=== PATIENT | female | born 1995 | race American Indian/Alaskan Native ===

== ENCOUNTER 2019-08-16 17:03 | Emergency (ER) | payer SELFPAY ==
--- NOTE | 2019-08-16 17:38 | Event Note ---
ED Screening Note Date of service: 08/16/19 Time: 17:36 ED Screening Note: 24 y old female presents with left sided flank and bilateral back pain x 4days denies n/v/d dysuria This initial assessment/diagnostic orders/clinical plan/treatment(s) is/are subject to change based on patients health status, clinical progression and re- assessment by fellow clinical providers in the ED. Further treatment and workup at subsequent clinical providers discretion. Patient/guardian urged not to elope from the ED as their condition may be serious if not clinically assessed and managed. Initial orders include: ua,upt
[2019-08-16 19:07] LABS: Bacteria,Urine 1+ /HPF (Negative); Bilirubin,Urine NEG (Negative); Blood,Urine NEG (Negative); Color,Urine Yellow (Yellow); Protein,Urine <15 mg/dL mg/dL (Negative)
[2019-08-16 19:08] LABS: HCG Qualitative,Urine Negative (Negative)
[2019-08-16] MEDS ORDERED: ONDANSETRON 4 MG/2 ML INJ IV ONE (22:05)
[2019-08-16] MEDS ORDERED: KETOROLAC 30 MG/1 ML INJ IV ONE (22:05)
[2019-08-16] MEDS ORDERED: SODIUM CHLORIDE 0.9% 500 ML 500 ML IV ONE (22:05)
[2019-08-16] MEDS ORDERED: SODIUM CHLORIDE 0.9% 1000 ML 1,000 ML IV ONE (22:05)
[2019-08-16] MEDS ORDERED: ACETAMINOPHEN 325 MG TAB PO ONE (22:05)
--- NOTE | 2019-08-16 22:07 | Emergency Department Report ---
<ZURI WEN - Last Filed: 08/17/19 02:15> ED General Adult HPI - General Chief complaint: Abdominal Pain Stated complaint: LOWER BACK/ABD PAIN Time Seen by Provider: 08/16/19 21:47 - Related Data Previous Rx's Medication Instructions Recorded Last Taken Type Acetaminophen [Non-Aspirin Extra 500 mg PO Q6HR PRN #30 tablet 08/16/19 Unknown Rx Strength] Ibuprofen [Motrin] 400 mg PO Q8H PRN #30 tablet 08/16/19 Unknown Rx Metoclopramide [Reglan] 10 mg PO QID PRN #30 tablet 08/16/19 Unknown Rx DOXYCYCLINE Hyclate [Vibramycin 100 mg PO Q12HR #28 capsule 08/17/19 Unknown Rx CAP] Allergies Allergy/AdvReac Type Severity Reaction Status Date / Time No Known Allergies Allergy Unverified 08/16/19 17:10 ED Past Medical Hx - Medications Home Medications: Home Medications Medication Instructions Recorded Confirmed Last Taken Type Acetaminophen [Non-Aspirin Extra 500 mg PO Q6HR PRN #30 tablet 08/16/19 Unknown Rx Strength] Ibuprofen [Motrin] 400 mg PO Q8H PRN #30 tablet 08/16/19 Unknown Rx Metoclopramide [Reglan] 10 mg PO QID PRN #30 tablet 08/16/19 Unknown Rx DOXYCYCLINE Hyclate [Vibramycin 100 mg PO Q12HR #28 capsule 08/17/19 Unknown Rx CAP] ED Course - Consultations Consultation #1: 08/17/19 01:49 ANTENNA DESIGN ENGINEER paged 08/17/19 02:15 Case, ultrasound report, CT scan and labs discuss with ANTENNA DESIGN ENGINEER Dr. Booth- recommends Rocephin in the ED and sending the patient home with doxycycline 100 mg twice a day 14 days ED Medical Decision Making - Lab Data Result diagrams: 08/16/19 22:31 08/16/19 22:31 ED Disposition Clinical Impression: Pelvic inflammatory disease (PID), Pyelonephritis Disposition: - TO HOME OR SELFCARE Is pt being admited?: No Does the pt Need Aspirin: No Condition: Stable Instructions: Abdominal Pain (ED) Prescriptions: Ibuprofen [Motrin] 400 mg PO Q8H PRN #30 tablet PRN Reason: Pain , Severe (7-10) Acetaminophen [Non-Aspirin Extra Strength] 500 mg PO Q6HR PRN #30 tablet PRN Reason: Pain , Severe (7-10) Metoclopramide [Reglan] 10 mg PO QID PRN #30 tablet PRN Reason: Nausea DOXYCYCLINE Hyclate [Vibramycin CAP] 100 mg PO Q12HR #28 capsule Referrals: [facility] [Provider Group] - 3-5 Days Forms: Work/School Release Form(ED) Time of Disposition: 02:16 <AAMIR MUNSON - Last Filed: 08/19/19 22:36> ED General Adult HPI - General Source: patient, RN notes reviewed Mode of arrival: Ambulatory Limitations: No Limitations - History of Present Illness Initial comments: Primary care ANTENNA DESIGN ENGINEER: [facility] This is a 24-year-old female who is not known to this provider previously. She reports that she has no chronic medical conditions. She presents to the ER with 3 days of bilateral lower quadrant abdominal pain, chills, malaise, fatigue, lightheadedness, weakness. Positive nausea but no vomiting. No dysuria. Abdominal pain is sharp and achy, started and left lower quadrant and moved to the right lower quadrant. She is sexually active with 1 male partner, uses intermittent condom protection There is no complaint of headache, neck pain, chest pain, upper abdominal pain, or sore throat. She reports that she hadn't influenza-like illness 2 weeks ago, but reports that this has resolved, and that she "got better." -: Gradual Location: abdomen Radiation: abdomen Quality: aching Consistency: other Improves with: other Worsens with: other ED Review of Systems ROS: Stated complaint: LOWER BACK/ABD PAIN Other details as noted in HPI Constitutional: chills, fever, malaise, weakness Eyes: denies: eye discharge ENT: denies: congestion Respiratory: denies: wheezing Cardiovascular: denies: palpitations Gastrointestinal: abdominal pain, nausea Genitourinary: denies: dysuria Musculoskeletal: back pain, myalgia Neurological: weakness Hematological/Lymphatic: denies: easy bleeding ED Past Medical Hx - Past Medical History Previous Medical History?: No - Surgical History Past Surgical History?: No - Social History Smoking Status: Current Every Day Smoker Substance Use Type: Alcohol ED Physical Exam - General Limitations: No Limitations General appearance: alert, anxious - Head Head exam: Present: atraumatic, normocephalic - Eye Eye exam: Present: normal appearance, EOMI. Absent: nystagmus - ENT ENT exam: Present: normal exam, mucous membranes dry, normal external ear exam - Neck Neck exam: Present: normal inspection, full ROM. Absent: tenderness, meningismus - Respiratory Respiratory exam: Present: normal lung sounds bilaterally. Absent: respiratory distress - Cardiovascular Cardiovascular Exam: Present: normal rhythm, tachycardia, normal heart sounds. Absent: systolic murmur, diastolic murmur, rubs, gallop - GI/Abdominal GI/Abdominal exam: Present: soft, tenderness, other (his bilateral lower quadrant abdominal pain, with no rebound, guarding or peritoneal signs). Absent: distended, guarding, rebound, rigid, pulsatile mass - External exam: Present: normal external exam. Absent: lesions, lacerations, bleeding Speculum exam: Present: normal speculum exam, other (chaperoned by nurse Alexia Knapp). Absent: erythema, vaginal discharge, foreign body, tissue, laceration Bi-manual exam: Present: cervical motion tendernes, adnexal tenderness - Extremities Exam Extremities exam: Present: normal inspection, full ROM, other (2+ pulses noted in the bilateral upper, lower extremities. There is no long bone tenderness. Musculoskeletal compartments are soft. The pelvis is stable.). Absent: pedal edema, calf tenderness - Back Exam Back exam: Present: normal inspection, full ROM, CVA tenderness (R), CVA tenderness (L). Absent: paraspinal tenderness, vertebral tenderness - Neurological Exam Neurological exam: Present: alert, other (there is no facial droop. The tongue is midline. Extraocular movements are intact bilaterally. Patient speaking in full complete sentences. Shoulder shrug is intact bilaterally. Hearing is grossly intact bilaterally. Visual acuity intact to finger counting and color perception at a close distance. 5/5 strength 4 extremities. Sensation intact to light touch in 4 extremities.). Absent: motor sensory deficit - Psychiatric Psychiatric exam: Present: anxious - Skin Skin exam: Present: warm, dry, intact, normal color. Absent: rash ED Course Vital Signs 08/16/19 08/16/19 08/16/19 21:30 21:32 22:00 Temperature 99.9 F H Pulse Rate 116 H Respiratory 16 Rate Blood Pressure 119/46 119/46 Blood Pressure 103/69 [Left] O2 Sat by Pulse 100 99 99 Oximetry 1108/16/19 08/16/19 22:30 23:00 23:01 Temperature Pulse Rate Respiratory Rate Blood Pressure 117/78 117/78 90/56 Blood Pressure [Left] O2 Sat by Pulse 100 99 Oximetry 08/16/19 08/17/19 08/17/19 23:30 01:01 01:30 Temperature Pulse Rate Respiratory Rate Blood Pressure 104/62 95/66 97/51 Blood Pressure [Left] O2 Sat by Pulse 100 100 100 Oximetry 08/17/19 02:00 Temperature Pulse Rate Respiratory Rate Blood Pressure 97/51 Blood Pressure [Left] O2 Sat by Pulse 100 Oximetry - Reevaluation(s) Reevaluation #1: 08/16/19 23:01 Differential diagnosis, including but not limited to: Urinary tract infection, pyelonephritis, intra-abdominal abscess, colitis, appendicitis, pelvic inflammatory disease Assessment and plan: 24-year-old female with low-grade fever, tachycardia, lower abdominal pain and tenderness, CVA tenderness. Thumb improved after IV fluids, Tylenol, pain medicine and nausea medicine. CT scan abdomen pelvis, pelvic ultrasound, laboratory studies pending. We will reassess after data points have resulted. Reevaluation #2: 08/16/19 23:[address] Ale Wen to follow up on ct a/p and ultrasound if not pathology noted with treat empirically for pelvic inflamamtory disease ED Medical Decision Making - Lab Data Result diagrams: 08/16/19 22:31 08/16/19 22:31 Vital Signs 08/16/19 21:32 Temperature 99.9 F H Pulse Rate 116 H Respiratory 16 Rate Blood Pressure 103/69 [Left] O2 Sat by Pulse 99 Oximetry Lab Results 08/16/19 Range/Units 18:00 Urine Color Yellow (Yellow) Urine Turbidity Clear (Clear) Urine pH 7.0 (5.0-7.0) Ur Specific [place] 1.008 (1.003-1.030) Urine Protein <15 mg/dl (Negative) mg/dL Urine Glucose (UA) Neg (Negative) mg/dL Urine Ketones Neg (Negative) mg/dL Urine Blood Neg (Negative) Urine Nitrite Neg (Negative) Urine Bilirubin Neg (Negative) Urine Urobilinogen 4.0 (<2.0) mg/dL Ur Leukocyte Esterase Sm (Negative) Urine WBC (Auto) 18.0 H (0.0-6.0) /HPF Urine RBC (Auto) 3.0 (0.0-6.0) /HPF U Epithel Cells (Auto) 2.0 (0-13.0) /HPF Urine Bacteria (Auto) 1+ (Negative) /HPF Urine HCG, Qual Negative (Negative) - EKG Data -: EKG Interpreted by Me EKG shows normal: sinus rhythm, axis, intervals, QRS complexes, ST-T waves - Radiology Data Radiology results: report reviewed, image reviewed Critical care attestation.: If time is entered above; I have spent that time in minutes in the direct care of this critically ill patient, excluding procedure time. ED Disposition Is pt being admited?: No Does the pt Need Aspirin: No
[2019-08-16 23:06] LABS: Hematocrit 35.7 % (30.3-42.9); Hemoglobin 12.2 gm/dl (10.1-14.3); Mean Corpuscular HGB Conc 34 % (30-34); Mean Corpuscular Volume 95 fl (79-97); Platelet Count 331 K/mm3 (140-440); Red Blood Count 3.76 M/mm3 (3.65-5.03); Red Cell Distribution Width 12.7 % (13.2-15.2)
[2019-08-16 23:19] LABS: INR 1.73 (0.87-1.13)
[2019-08-16 23:26] LABS: Alanine Aminotransferase 10 units/L (7-56); Albumin 3.5 g/dL (3.9-5); BUN/Creatinine Ratio 12; Blood Urea Nitrogen 7 mg/dL (7-17); Calcium 8.5 mg/dL (8.4-10.2); Hemolysis Index 7
[2019-08-17] MEDS ORDERED: cefTRIAXone/NS 1 GM/50 ML 1 GM/50 ML BAG IV ONE (00:30)
--- NOTE | 2019-08-17 00:55 | Cat Scan Report ---
CT abdomen pelvis w con INDICATION: abd pain flank pain. TECHNIQUE: All CT scans at this location are performed using the following dose modulation technique: Automated exposure control. CONTRAST: Omnipaque 300, 100 cc IV injection. COMPARISON: None available. CT ABDOMEN: Evaluation the parenchymal organs demonstrates thickening/enhancement at the left renal c ollecting system. There is also mild abnormal enhancement at the left kidney and inferiorly just belo w the level the collecting system. Negative for discrete abscess. The remaining parenchymal organs ar e unremarkable. CT PELVIS: Evaluation of the pelvis demonstrate ovarian cysts right greater than left. The largest ri ght-sided cyst measured approximately 3.1 cm. Negative for pelvic mass or localized fluid collection. IMPRESSION: 1. Left-sided pyelonephritis. 2. Bilateral ovarian cysts right greater than left. Signer Name: Favio Neff MD Signed: 08/17/2019 12:50 AM Workstation Name: [id number]
--- NOTE | 2019-08-17 01:34 | Ultrasound Report ---
Pelvic ultrasound performed transabdominally and endovaginally. HISTORY: Pelvic pain.. FINDINGS: Uterus measures 5.8 x 3 x 5.2 cm. The endometrial stripe measures 6 mm. Right ovary measures 2.9 x 2.1 x 2.2 cm and contains a 1.6 cm complex cyst. Left ovary measures 2.9 x 2.1 x 2.2 cm and contains a 1.4 cm complex cyst. What is thought to represent a complex hydrosalpinx is seen on the right. Negative for significant fluid. IMPRESSION: 1. Complex hydrosalpinx right adnexa. 2. Small complex ovarian cysts bilaterally. Signer Name: Favio Neff MD Signed: 08/17/2019 1:29 AM Workstation Name: [id number]
[2019-08-17 01:55] VITALS: BP 97/51
== END 2019-08-17 02:20 | disposition home or self-care (01) ==
LOC: ED 17:03
DX: N73.9 Female pelvic inflammatory disease, unspecified (principal); N12 Tubulo-interstitial nephritis, not specified as acute or chronic; F17.200 Nicotine dependence, unspecified, uncomplicated; Z79.1 Long term (current) use of non-steroidal anti-inflammatories (NSAID); Z79.899 Other long term (current) drug therapy
CPT/HCPCS: 36415; 74177; 76830; 80053; 81001; 81025; 82550; 83735; 85027; 85610; 87076; 87086; 87186; 87210; 93005; 93010; 93975; 96365; 96375; 99285; J0696; J1885; J2405; J7030; J7040; Q9967

== ENCOUNTER 2020-01-03 08:46 | Outpatient (CLI) | payer MEDICAID ==
--- NOTE | 2020-01-03 10:26 | Ultrasound Report ---
FIRSTTRIMESTER OBSTETRIC ULTRASOUND HISTORY: IUP COMPARISON: None. TECHNIQUE: Routine transabdominal OB ultrasound performed. FINDINGS: Uterus: Mildly enlarged measuring 9.6 x 8.0 x 8.4 cm. Gestational Sac: Well-defined oval shape and intrauterine in location. Fetus/Embryo: [place]-rump length of 3.7 cm, corresponding to an estimated gestational age of 10 weeks 4 days. Embryonic/ anatomy is too small for evaluation. Embryonic/ cardiac activity: 150bpm Placenta: Too small for evaluation. Amniotic fluid volume: Subjectively appropriate for gestational age. Ovaries: Not visualized. Additional findings: None. IMPRESSION: 1. Single living intrauterine at 10 weeks 4 days based on crown-rump length measurement. 2. EDC based on current measurements is 07/27/2020 and EDC based on LMP is 07/28/2020. Signer Name: Benito Ritchie MD Signed: 01/03/2020 10:22 AM Workstation Name: [id number]
== END 2020-01-03 08:47 | disposition home or self-care (01) ==
LOC: US 08:46
PROVIDERS: ATTEND Obstetrics & Gynecology
DX: Z34.91 Encounter for supervision of normal pregnancy, unspecified, first trimester (principal); Z3A.10 10 weeks gestation of pregnancy
CPT/HCPCS: 76801

== ENCOUNTER 2020-07-16 14:33 | Outpatient (CLI) | payer MEDICAID ==
[2020-07-16] MEDS ORDERED: LIDOCAINE (2%) 20 MG/1 ML VIAL 20 ML MDV INFILTRATI ONE (16:46)
[2020-07-16] MEDS ORDERED: METHYLERGONOVINE MALEATE 0.2 MG/ML VIAL IM PRN (16:46)
[2020-07-16] MEDS ORDERED: miSOPROStol 200 MCG TAB PR PRN (16:46)
[2020-07-16] MEDS ORDERED: TERBUTALINE 1 MG/1 ML INJ SUB-Q PRN (16:46)
[2020-07-16] MEDS ORDERED: fentaNYL 100 MCG/2 ML INJ IV PRN (16:46)
[2020-07-16] MEDS ORDERED: MINERAL OIL 30 ML ORAL LIQD PO PRN (16:46)
[2020-07-16] MEDS ORDERED: NALOXONE 0.4 MG/1 ML INJ IV PRN (16:46)
[2020-07-16] MEDS ORDERED: ACETAMINOPHEN 325 MG TAB PO PRN (16:46)
[2020-07-16] MEDS ORDERED: ONDANSETRON 4 MG/2 ML INJ IV PRN (16:46)
[2020-07-16] MEDS ORDERED: ePHEDrine SULFATE 50 MG/1 ML INJ IV PRN (16:46)
[2020-07-16] MEDS ORDERED: LACTATED RINGERS 1,000 ML IV SCH (17:00)
[2020-07-16] MEDS ORDERED: OXYTOCIN DRIP 30 UNITS/500 ML BAG IV SCH ×2 (17:00)
--- NOTE | 2020-07-16 17:22 | History and Physical Report ---
History of Present Illness Date of examination: 07/16/20 Chief complaint: contractions History of present illness: Pt is a 25 year old at 38 wks who presents with contractions. She was 5 cm in the office this morning with some blood show after having her membranes swept. She denies leakage of fluid. Her course has been uncomplicated. She is GBS negative. Past History Past Medical History: no pertinent history - Obstetrical History Expected Date of Delivery: 07/28/20 Actual Gestation: 38 Week(s) 2 Day(s) : 2 Para: 1 Hx # Term Pregnancies: 1 Number of Pregnancies: 0 Spontaneous Abortions: 0 Induced : 0 Number of Living Children: 1 Medications and Allergies Allergies Allergy/AdvReac Type Severity Reaction Status Date / Time No Known Allergies Allergy Verified 07/16/20 16:40 Home Medications Medication Instructions Recorded Confirmed Last Taken Type Acetaminophen [Non-Aspirin Extra 500 mg PO Q6HR PRN #30 tablet 08/16/19 07/16/20 Unknown Rx Strength] Ibuprofen [Motrin] 400 mg PO Q8H PRN #30 tablet 08/16/19 07/16/20 Unknown Rx Metoclopramide [Reglan] 10 mg PO QID PRN #30 tablet 08/16/19 07/16/20 Unknown Rx DOXYCYCLINE Hyclate [Vibramycin 100 mg PO Q12HR #28 capsule 08/17/19 07/16/20 Unknown Rx CAP] Active Meds: Active Medications Acetaminophen (Tylenol) 650 mg PO Q4H PRN PRN Reason: Pain, Mild (1-3) Ephedrine Sulfate (Ephedrine Sulfate) 10 mg IV Q2M PRN PRN Reason: Hypotension Fentanyl (Sublimaze) 100 mcg IV Q2H PRN PRN Reason: Pain,Severe (7-10) LABOR PAIN Oxytocin/Sodium Chloride (Pitocin/Ns 30 Unit/500ml) 30 units in 500 mls @ 2 mls/hr IV TITR JANETT; Protocol Lactated Ringer's (Lactated Ringers) 1,000 mls @ 125 mls/hr IV DIRECT JANETT Oxytocin/Sodium Chloride (Pitocin/Ns 30 Unit/500ml) 30 units in 500 mls @ 40 mls/hr IV TITR JANETT; Protocol Methylergonovine Maleate (Methergine) 0.2 mg IM ONCE PRN PRN Reason: Uterine Bleeding Mineral Oil (Mineral Oil) 30 ml PO QHS PRN PRN Reason: Constipation Misoprostol (Cytotec) 800 mcg CO ONCE PRN PRN Reason: Uterine Bleeding Naloxone HCl (Naloxone) 0.1 mg IV Q2MIN PRN PRN Reason: Res Rate </= 8 or 02 SAT < 92% Ondansetron HCl (Zofran) 4 mg IV Q8H PRN PRN Reason: Nausea And Vomiting Terbutaline Sulfate (Brethine) 0.25 mg SUB-Q ONCE PRN PRN Reason: Hyperstimulation/Hypertonicity Review of Systems All systems: negative - Vital Signs Vital signs: Vital Signs Temp 98.0 F 07/16/20 16:15 Temp Pulse Resp BP Pulse Ox 98.0 F 07/16/20 16:15 - Physical Exam Abdomen: Positive: soft (gravid ) Uterus: Positive: enlarged (gravid ) Extremities: Positive: normal - Obstetrical FHR: auscultation normal Cervical Dilatation: 5 Cervical Effacement Percentage: 50 station: -2 Uterine Contraction Pattern: Irregular Uterine Tone Measurement Phase: Resting Uterine Contraction Intensity: Mild Results All other labs normal. Assessment and Plan A: IUP at 38w2d Active Labor GBS Negative P: Admit to labor and delivery Routine admission orders
--- NOTE | 2020-07-16 17:23 | Event Note ---
Date: 07/16/20 Pt is in no distress and has had no cervical private branch exchange installer two hours of observation, nor change from her exam in office this morning (greater than 6 hours ago). Pt will be discharged home with labor precautions. She has a follow up appt scheduled.
--- NOTE | 2020-07-16 17:25 | Short Stay Summary ---
Short Stay Documentation Date of service: 07/16/20 - History H&P: dictated - Allergies and Medications Current Medications: Allergies No Known Allergies Allergy (Verified 07/16/20 16:40) Home Medications Medication Instructions Recorded Confirmed Last Taken Type Acetaminophen [Non-Aspirin Extra 500 mg PO Q6HR PRN #30 tablet 08/16/19 07/16/20 Unknown Rx Strength] Ibuprofen [Motrin] 400 mg PO Q8H PRN #30 tablet 08/16/19 07/16/20 Unknown Rx Metoclopramide [Reglan] 10 mg PO QID PRN #30 tablet 08/16/19 07/16/20 Unknown Rx DOXYCYCLINE Hyclate [Vibramycin 100 mg PO Q12HR #28 capsule 08/17/19 07/16/20 Unknown Rx CAP] Active Medications Acetaminophen (Tylenol) 650 mg PO Q4H PRN PRN Reason: Pain, Mild (1-3) Ephedrine Sulfate (Ephedrine Sulfate) 10 mg IV Q2M PRN PRN Reason: Hypotension Fentanyl (Sublimaze) 100 mcg IV Q2H PRN PRN Reason: Pain,Severe (7-10) LABOR PAIN Oxytocin/Sodium Chloride (Pitocin/Ns 30 Unit/500ml) 30 units in 500 mls @ 2 mls/hr IV TITR JANETT; Protocol Lactated Ringer's (Lactated Ringers) 1,000 mls @ 125 mls/hr IV DIRECT JANETT Oxytocin/Sodium Chloride (Pitocin/Ns 30 Unit/500ml) 30 units in 500 mls @ 40 mls/hr IV TITR JANETT; Protocol Methylergonovine Maleate (Methergine) 0.2 mg IM ONCE PRN PRN Reason: Uterine Bleeding Mineral Oil (Mineral Oil) 30 ml PO QHS PRN PRN Reason: Constipation Misoprostol (Cytotec) 800 mcg NV ONCE PRN PRN Reason: Uterine Bleeding Naloxone HCl (Naloxone) 0.1 mg IV Q2MIN PRN PRN Reason: Res Rate </= 8 or 02 SAT < 92% Ondansetron HCl (Zofran) 4 mg IV Q8H PRN PRN Reason: Nausea And Vomiting Terbutaline Sulfate (Brethine) 0.25 mg SUB-Q ONCE PRN PRN Reason: Hyperstimulation/Hypertonicity - Hospital course Hospital course: This patient was admitted due to contractions and bloody show at 38 weeks. However, over greater than 6 hours the patient has made no cervical change. She has a category 1 tracing. She will be discharged home with labor precautions. She has a follow-up appointment scheduled. - Disposition Condition at discharge: Stable Disposition: DC-01 TO HOME OR SELFCARE - Discharge Diagnoses (1) Irregular contractions Status: Acute (2) Status: Acute Qualifiers: Weeks of gestation: 38 weeks Qualified Code(s): Z3A.38 - 38 weeks gestation of Short Stay Discharge Plan Activity: no restrictions Weight Bearing Status: Full Weight Bearing Diet: regular Follow up with: BENNY ADAM CNM [Advanced Practice Nurse] - 7 Days
== END 2020-07-16 17:36 | disposition home or self-care (01) ==
LOC: TRG 14:33 → APU 14:37 → LD 16:45 → TRG 17:36
PROVIDERS: ATTEND Obstetrics & Gynecology
DX: O47.1 False labor at or after 37 completed weeks of gestation (principal); Z3A.38 38 weeks gestation of pregnancy
CPT/HCPCS: 59025

== ENCOUNTER 2020-07-18 21:32 | Inpatient (IN) | payer MEDICAID ==
[2020-07-18] MEDS ORDERED: LACTATED RINGERS 1,000 ML ONE (22:46)
[2020-07-18] MEDS ORDERED: NALOXONE 0.4 MG/1 ML INJ IV PRN (23:09)
[2020-07-18] MEDS ORDERED: ONDANSETRON 4 MG/2 ML INJ IV PRN (23:09)
[2020-07-18] MEDS ORDERED: BUTORPHANOL 2 MG/1 ML INJ IV PRN ×2 (23:09)
[2020-07-18] MEDS ORDERED: ePHEDrine SULFATE 50 MG/1 ML INJ IV PRN (23:09)
[2020-07-18] MEDS ORDERED: MINERAL OIL 30 ML ORAL LIQD PO PRN (23:09)
[2020-07-18] MEDS ORDERED: LIDOCAINE (2%) 20 MG/1 ML VIAL 20 ML MDV INFILTRATI ONE (23:09)
[2020-07-18] MEDS ORDERED: PROMETHAZINE 25 MG TAB PO PRN (23:09)
[2020-07-18] MEDS ORDERED: TERBUTALINE 1 MG/1 ML INJ SUB-Q PRN (23:09)
[2020-07-18] MEDS ORDERED: fentaNYL 100 MCG/2 ML INJ IV PRN (23:09)
[2020-07-18 23:20] LABS: Hematocrit 33.4 % (30.3-42.9); Hemoglobin 11.6 gm/dl (10.1-14.3); Mean Corpuscular HGB Conc 35 % (30-34); Mean Corpuscular Volume 95 fl (79-97); Platelet Count 175 K/mm3 (140-440); Red Blood Count 3.53 M/mm3 (3.65-5.03); Red Cell Distribution Width 12.9 % (13.2-15.2)
[2020-07-18] MEDS ORDERED: OXYTOCIN DRIP 30 UNITS/500 ML BAG IV SCH ×2 (23:45)
[2020-07-18] MEDS ORDERED: LACTATED RINGERS 1,000 ML IV SCH (23:45)
[2020-07-19] MEDS ORDERED: NALOXONE 2 MG/2 ML INJ IV PRN (00:26)
[2020-07-19] MEDS ORDERED: ePHEDrine SULFATE 50 MG/1 ML INJ IV PRN (00:26)
--- NOTE | 2020-07-19 00:27 | Anesthesia Consultation ---
Anesthesia Consult and Med Hx Date of service: 07/19/20 - Airway Anesthetic Teeth Evaluation: Good ROM Head & Neck: Adequate Mental/Hyoid Distance: Adequate Mallampati Class: Class II Intubation Access Assessment: Probably Good - Pulmonary Exam CTA: Yes - Cardiac Exam Cardiac Exam: RRR - Pre-Operative Health Status ASA Pre-Surgery Classification: ASA2 Proposed Anesthetic Plan: Epidural - Pulmonary Hx Asthma: No - Cardiovascular System Hx Hypertension: No - Central Nervous System Hx Seizures: No Hx Psychiatric Problems: No - Endocrine Hx Renal Disease: No Hx Hypothyroidism: No Hx Hyperthyroidism: No - Hematic Hx Anemia: Yes Hx Sickle Cell Disease: No - Other Systems Hx Alcohol Use: No
--- NOTE | 2020-07-19 00:28 | Progress Note ---
Labor Epidural - Labor Epidural Start Time: 00:15 Stop Time: 00:28 Performed by:: ROHITH VALLADARES Procedure: Patient is requesting epidural for labor pain. H&P, and labs reviewed. Procedure explained, questions answered, consent obtained. Patient in sitting position with blood pressure cuff and pulse ox on and working. Timeout performed immediately before start of procedure. Sterile betadine prep/drape. 3 mL 1% lidocaine skin wheal at L[3]-L[4]. 18-gauge Touhy epidural needle advanced to [id number] with saline at 5 cm. Epidural dexmedetomidine [30] mcg administered. Epidural catheter advanced to 10 cm, negative aspiration for blood and csf, negative test dose 3 ml 1.5% lidocaine with epinephrine. Sterile steri-strips and tegaderm applied, followed by tape reinforcement. Patient tolerated procedure well. Korin SRNA
--- NOTE | 2020-07-19 00:46 | History and Physical Report ---
History of Present Illness Date of examination: 07/19/20 Date of admission: 07/18/20 21:34 Chief complaint: Pt presented to triage after SROM at 2030, clear fluid and mild contractions History of present illness: 25 y/o presents in active labor with SROM and mild contractions. Pt reports positive movement, denies vaginal bleeding. VE in triage /-2, rupture confirmed, clear fluid. A+, GBS negative. PMHx unremarkable. Pt has received care with [facility]. Past History Past Medical History: GERD Past Surgical History: no surgical history Family/Genetic History: none Social history: no significant social history - Obstetrical History Expected Date of Delivery: 07/28/20 Actual Gestation: 38 Week(s) 5 Day(s) : 2 Para: 1 Hx # Term Pregnancies: 1 Number of Pregnancies: 0 Spontaneous Abortions: 0 Induced : 0 Number of Living Children: 1 Medications and Allergies Allergies Allergy/AdvReac Type Severity Reaction Status Date / Time No Known Allergies Allergy Verified 07/16/20 16:40 Home Medications Medication Instructions Recorded Confirmed Last Taken Type No Known Home Medications [No 07/18/20 07/18/20 Unknown History Reported Home Medications] Active Meds: Active Medications Butorphanol Tartrate (Stadol) 1 mg IV Q2H PRN PRN Reason: Pain, Moderate(4-6) LABOR PAIN Butorphanol Tartrate (Stadol) 2 mg IV Q2H PRN PRN Reason: Pain , Severe (7-10) Ephedrine Sulfate (Ephedrine Sulfate) 10 mg IV Q2M PRN PRN Reason: Hypotension Fentanyl (Sublimaze) 100 mcg IV Q2H PRN PRN Reason: Pain,Severe (7-10) LABOR PAIN Oxytocin/Sodium Chloride (Pitocin/Ns 30 Unit/500ml) 30 units in 500 mls @ 2 mls/hr IV TITR JANETT; Protocol Lactated Ringer's (Lactated Ringers) 1,000 mls @ 125 mls/hr IV DIRECT JANETT Last Admin: 07/18/20 23:00 Dose: 125 mls/hr Documented by: Oxytocin/Sodium Chloride (Pitocin/Ns 30 Unit/500ml) 30 units in 500 mls @ 40 mls/hr IV TITR JANETT; Protocol Stop: 07/19/20 12:14 Fentanyl/Bupivacaine/Sodium Chlor (Fentanyl-Bupiv 2 Mcg/Ml-0.125%) 200 mcg in 100 mls @ 12 mls/hr EPIDURAL TITR JANETT; Protocol Mineral Oil (Mineral Oil) 30 ml PO QHS PRN PRN Reason: Constipation Naloxone HCl (Naloxone) 0.2 mg IV Q5M PRN PRN Reason: Respiratory sedation Ondansetron HCl (Zofran) 4 mg IV Q8H PRN PRN Reason: Nausea And Vomiting Promethazine HCl (Phenergan) 25 mg PO Q6H PRN PRN Reason: Nausea And Vomiting Terbutaline Sulfate (Brethine) 0.25 mg SUB-Q ONCE PRN PRN Reason: Hyperstimulation/Hypertonicity Review of Systems All systems: negative Genitourinary: leakage of fluid, contractions, no vaginal bleeding, no genital sores - Vital Signs Vital signs: Vital Signs Temp Pulse Resp BP Pulse Ox 99.2 F 98 H 18 107/73 99 07/18/20 22:19 07/18/20 22:19 07/18/20 22:19 07/18/20 22:19 07/18/20 22:19 Temp Pulse Resp BP Pulse Ox 99.2 F 76 18 99/60 99 07/18/20 22:19 07/19/20 00:40 07/18/20 22:19 07/19/20 00:40 07/19/20 00:36 - Physical Exam Lungs: Positive: Normal air movement Abdomen: Positive: soft. Negative: distention Uterus: Positive: enlarged - Obstetrical FHR: category 1 FHR comments: Baseline FHR 125 Uterine Contraction Monitor Mode: External Cervical Dilatation: 6 (per transitional living specialist) Cervical Effacement Percentage: 80 station: -2 Uterine Contraction Frequency (min): 3 Uterine Contraction Duration: 45 Uterine Contraction Pattern: Irregular Results Result Diagrams: 07/18/20 22:50 Abnormal lab results 07/18/20 Range/Units 22:50 RBC 3.53 L (3.65-5.03) M/mm3 MCH 33 H (28-32) pg MCHC 35 H (30-34) % RDW 12.9 L (13.2-15.2) % All other labs normal. Assessment and Plan A: at 38w5d in active labor SROM at 2030, clear fluid. Ruptured x4h GBS- Afebrile, normotensive P: Admit to L&D Epidural as patient desires Pitocin augmentation 2x2 once epidural placed Anticipate
[2020-07-19] MEDS ORDERED: fentaNYL-BUPIV 2 MCG/ML-0.125% 200 MCG/100 ML BAG EPIDURAL SCH (01:00)
[2020-07-19] MEDS ORDERED: FAMOTIDINE 20 MG/2 ML INJ IV ONE ×2 (03:35→03:55)
--- NOTE | 2020-07-19 03:56 | Procedure Note ---
OB Delivery Note - Delivery Date of Delivery: 07/19/20 Surgeon: BENNY ADAM ([facility]) Estimated blood loss: 300cc - Vaginal Delivery presentation: compound (left hand) Delivery position: OA Intrapartum events: PROM->1hr before delivery, mult.variable deceleratio, other(please specify) (uterine prolapse to 1 fingerbreadth outside of perineum ) Delivery induction: none Delivery augmentation: pitocin Delivery monitor: external FHT, external uterine Route of delivery: Delivery placenta: spontaneous, adherent Delivery cord: 3 umbilical vessels Episiotomy: none Delivery laceration: none Anesthesia: epidural Delivery comments: of viable female over intact perineum at 0329. Variable decelerations in FHR x10 min before delivery. Head delivered OA, restituted ROT. Compound hand noted. Body followed spontaneously. placed on maternal abdomen, vigorous w/ apgars 8/9. Dried and bulb suction performed. Pitocin infusion started. Placenta delivered grossly intact w/ 3vc at 0334. Patient experienced significant coughing related to nausea and acid reflux, causing uterine prolapse managed with bimanual pressure; pepcid and zofran IV given to manage coughing. Fundus firm and midline despite prolapse. EBL 300mL, intact perineum. Infant 5lb 13oz, 19.5". Will continue to monitor prolapse/ - Infant A at 1 minute: 8 at 5 minutes: 9 Gender: Female
[2020-07-19] MEDS ORDERED: LANOLIN/ZINC/DIMETHICONE (LANSINOH) 7 GM TP PRN (04:00)
[2020-07-19] MEDS ORDERED: PROMETHAZINE 25 MG RECT SUPP PR PRN (04:00)
[2020-07-19] MEDS ORDERED: ONDANSETRON 4 MG/2 ML INJ IV PRN (04:00)
[2020-07-19] MEDS ORDERED: WITCH HAZEL/ GLYCERIN PAD TP PRN (04:00)
[2020-07-19] MEDS ORDERED: PROMETHAZINE 25 MG TAB PO PRN (04:00)
[2020-07-19] MEDS ORDERED: MAGNESIUM HYDROXIDE (MOM) ORAL LIQD UDC PO PRN (04:00)
[2020-07-19] MEDS ORDERED: diphenhydrAMINE 25 MG CAP PO PRN (04:00)
[2020-07-19] MEDS: IBUPROFEN 600 MG TAB PO SCH ×2 (11:41→19:42)
[2020-07-19 18:40] LABS: Hematocrit 29.6 % (30.3-42.9)
[2020-07-20] MEDS: IBUPROFEN 600 MG TAB PO SCH ×2 (02:41→12:35)
--- NOTE | 2020-07-20 12:27 | Progress Note ---
Assessment and Plan PPD 1 s/p . Doing well. Plan for discharge on today. Subjective - Subjective Date of service: 07/20/20 Principal diagnosis: Spontaneous vaginal delivery Patient reports: appetite normal, voiding normally, ambulating normally : doing well Objective - Vital Signs Latest vital signs: Vital Signs Temp Pulse Resp BP BP Pulse Ox 07/20/20 08:45 97.4 F L 73 20 101/59 07/20/20 00:41 98.1 F 65 20 94/57 98 07/19/20 16:15 97.9 F 80 20 112/70 07/19/20 14:11 98 F 75 18 99/55 Intake and Output 07/19/20 07/20/20 07/20/20 22:59 06:59 14:59 Intake Total 440 480 Output Total 1300 Balance -860 480 Intake: Oral 440 480 Output: Urine 1300 Void 1300 Other: Total, Intake Amount 120 120 Total, Output Amount 400 # Voids Void 1 - Exam Breasts: Present: deferred Cardiovascular: Present: Regular rate, Normal S1, Normal S2 Lungs: Present: Clear to auscultation, Normal air movement Abdomen: Present: normal appearance, soft, normal bowel sounds Uterus: Present: normal, firm Extremities: Present: normal - Labs Labs: Abnormal lab results 07/19/20 Range/Units 18:26 Hgb 10.0 L (10.1-14.3) gm/dl Hct 29.6 L (30.3-42.9) %
--- NOTE | 2020-07-20 12:29 | Discharge Summary ---
Providers - Providers Date of Admission: 07/18/20 21:34 Date of discharge: 07/20/20 Attending physician: NICHOLAS CARTER 07/19/20 04:01 Consult to Primary Teaching Assistant [CONS] Routine Reason For Exam: assistance with , SNS Primary care physician: NICHOLAS CARTER Hospitalization Reason for admission: active labor Delivery: Laceration: 1st degree Discharge diagnosis: IUP at term delivered [place] baby: female Hospital course: unremarkable Condition at discharge: Good Disposition: DC-01 TO HOME OR SELFCARE Plan - Provider Discharge Summary Activity: routine, no sex for 6 weeks, no heavy lifting 4 weeks, no strenuous exercise Diet: routine Instructions: routine Additional instructions: [] Smoking cessation referral if applicable(refer to patient education folder for contact #) [] Refer to [facility]'s [facility] Booklet Call your doctor immediately for: * Fever > 100.5 * Heavy vaginal bleeding ( >1 pad per hour) * Severe persistent headache * Shortness of breath * Reddened, hot, painful area to leg or breast * Drainage or odor from incision. * Keep incision clean and dry at all times and follow doctor's instructions regarding bathing/showering - Follow up plan Follow up: NICHOLAS CARTER MD [Primary Care Provider] - 6 Weeks
[2020-07-20 13:13] VITALS: BP 101/68
== END 2020-07-20 15:05 | disposition home or self-care (01) | DRG 775 ==
LOC: TRG 21:32 → LD 21:34 → OB 07-19 05:35
PROVIDERS: ADMIT Obstetrics & Gynecology; ATTEND Obstetrics & Gynecology
PROC: 10E0XZZ Delivery of Products of Conception, External Approach (ICD-10-PCS; principal; 2020-07-19)
PROC: 3E0R3BZ Introduction of Anesthetic Agent into Spinal Canal, Percutaneous Approach (ICD-10-PCS; 2020-07-19)
PROC: 00HU33Z Insertion of Infusion Device into Spinal Canal, Percutaneous Approach (ICD-10-PCS; 2020-07-19)
DX: O76 Abnormality in fetal heart rate and rhythm complicating labor and delivery (principal); Z37.0 Single live birth; Z3A.38 38 weeks gestation of pregnancy; Z20.828 Contact with and (suspected) exposure to other viral communicable diseases; K21.9 Gastro-esophageal reflux disease without esophagitis; O42.90 Premature rupture of membranes, unspecified as to length of time between rupture and onset of labor, unspecified weeks of gestation; O99.62 Diseases of the digestive system complicating childbirth; O34.523 Maternal care for prolapse of gravid uterus, third trimester
CPT/HCPCS: 36415; 59025; 85014; 85018; 85027; 86592; 86850; 86900; 86901; G0378; J2405; J2590; J7120; U0003

== ENCOUNTER 2021-07-08 13:44 | Inpatient (IN) | payer MEDICAID ==
[2021-07-08] MEDS ORDERED: ePHEDrine SULFATE 50 MG/1 ML INJ IV PRN ×2 (15:00→15:40)
[2021-07-08] MEDS ORDERED: fentaNYL 100 MCG/2 ML INJ IV PRN (15:00)
[2021-07-08] MEDS ORDERED: BUTORPHANOL 2 MG/1 ML INJ IV PRN (15:00)
[2021-07-08] MEDS ORDERED: OXYTOCIN 10 UNIT/1 ML INJ IM PRN (15:00)
[2021-07-08] MEDS ORDERED: OXYTOCIN DRIP 30 UNITS/500 ML BAG IV SCH (15:00)
[2021-07-08] MEDS: LACTATED RINGERS 1,000 ML IV SCH ×2 (15:00→16:03)
[2021-07-08] MEDS ORDERED: MINERAL OIL 30 ML ORAL LIQD PO PRN (15:00)
[2021-07-08] MEDS ORDERED: miSOPROStol 200 MCG TAB PR PRN (15:00)
[2021-07-08] MEDS ORDERED: ACETAMINOPHEN 325 MG TAB PO PRN (15:00)
[2021-07-08] MEDS ORDERED: NalbUPHINE 10 MG/1 ML INJ IV PRN ×2 (15:00→15:40)
[2021-07-08] MEDS ORDERED: METHYLERGONOVINE MALEATE 0.2 MG/ML VIAL IM PRN (15:00)
[2021-07-08] MEDS ORDERED: LOPERAMIDE 2 MG CAP PO PRN (15:00)
[2021-07-08] MEDS ORDERED: LIDOCAINE (2%) 20 MG/1 ML VIAL 20 ML MDV INFILTRATI SCH (15:00)
[2021-07-08] MEDS ORDERED: CARBOPROST TROMETHAMINE 250 MCG/1 ML INJ IM PRN (15:00)
[2021-07-08] MEDS ORDERED: ONDANSETRON 4 MG/2 ML INJ IV PRN ×3 (15:00→20:32)
[2021-07-08] MEDS ORDERED: TERBUTALINE 1 MG/1 ML INJ SUB-Q PRN (15:30)
[2021-07-08] MEDS ORDERED: NALOXONE 2 MG/2 ML INJ IV PRN (15:40)
[2021-07-08] MEDS ORDERED: diphenhydrAMINE 50 MG/ML VIAL IV PRN (15:40)
[2021-07-08] MEDS ORDERED: LACTATED RINGERS 250 ML IV SOLN IV ONE (15:40)
[2021-07-08 16:00] LABS: Hematocrit 33.9 % (30.3-42.9); Hemoglobin 11.6 gm/dl (10.1-14.3); Mean Corpuscular HGB Conc 34 % (30-34); Mean Corpuscular Volume 92 fl (79-97); Platelet Count 228 K/mm3 (140-440); Red Blood Count 3.69 M/mm3 (3.65-5.03); Red Cell Distribution Width 13.2 % (13.2-15.2)
[2021-07-08] MEDS ORDERED: fentaNYL-BUPIV 2 MCG/ML-0.125% 200 MCG/100 ML BAG EPIDURAL SCH (16:00)
--- NOTE | 2021-07-08 16:39 | Anesthesia Consultation ---
Anesthesia Consult and Med Hx Date of service: 07/08/21 - Airway Anesthetic Teeth Evaluation: Good ROM Head & Neck: Adequate Mental/Hyoid Distance: Adequate Mallampati Class: Class I Intubation Access Assessment: Good - Pulmonary Exam CTA: Yes - Cardiac Exam Cardiac Exam: RRR - Pre-Operative Health Status ASA Pre-Surgery Classification: ASA2 Proposed Anesthetic Plan: Epidural - Pulmonary Hx Smoking: No Hx Asthma: No Hx Sleep Apnea: No - Cardiovascular System Hx Hypertension: No Hx Heart Attack/AMI: No Hx Angina: No - Central Nervous System Hx Seizures: No Hx Psychiatric Problems: No - Gastrointestinal Hx Gastroesophageal Reflux Disease: No - Endocrine Hx Renal Disease: No Hx Liver Disease: No Hx Insulin Dependent Diabetes: No Hx Non-Insulin Dependent Diabetes: No Hx Hypothyroidism: No Hx Hyperthyroidism: No - Hematic Hx Anemia: Yes Hx Sickle Cell Disease: No - Other Systems Hx Alcohol Use: No
--- NOTE | 2021-07-08 16:40 | Progress Note ---
Labor Epidural - Labor Epidural Start Time: 16:20 Stop Time: 16:35 Performed by:: CARISSA TOBIN Procedure: Patient is requesting epidural for labor and pain. H&P, labs were reviewed. Patient IDed, H&P reviewed, all questions and concerns were answered, and consent was signed. Timeout was performed at bedside. Patient in sitting position. Sterile prep and drape was performed. 3ml of 1% lidocaine skin wheal at L[3]- L [4]. 18-gauge Short Fuze epidural needle was advanced to loss of resistance with air technique 5cm. Negative CSF negative blood. Epidural catheter advanced to [10] centimeters. [negative] Aspiration [negative] test dose. Sterile dressing applied. Patient tolerated procedure.
--- NOTE | 2021-07-08 17:23 | History and Physical Report ---
History of Present Illness Date of examination: 07/08/21 Date of admission: 07/08/21 13:45 Chief complaint: contractions, advanced cervical dilation History of present illness: Pt is a 25 year old MATTHEW 07/19/21 at 38w3d who presents with painful contractions and advanced cervical dilation of 6 cm. She denies leakage of fluid or vaginal bleeding. She has had care at [facility] since 10 wks complicated by UTI (treated), h/o SGA fetus, subchorionic hemorrhage, limited anatomy scan. She is GBS negative. Past History Past Medical History: no pertinent history Past Surgical History: no surgical history Social history: no significant social history - Obstetrical History Expected Date of Delivery: 07/19/21 Actual Gestation: 38 Week(s) 3 Day(s) : 3 Para: 2 Hx # Term Pregnancies: 2 Number of Pregnancies: 0 Spontaneous Abortions: 0 Induced : 0 Number of Living Children: 2 Medications and Allergies Allergies Allergy/AdvReac Type Severity Reaction Status Date / Time No Known Allergies Allergy Verified 07/08/21 15:39 Home Medications Medication Instructions Recorded Confirmed Last Taken Type Vitamin 1 tab PO DAILY 07/08/21 07/08/21 07/07/21 10:00 History Active Meds: Active Medications Acetaminophen (Acetaminophen 325 Mg Tab) 650 mg PO Q4H PRN PRN Reason: Pain, Mild (1-3) Butorphanol Tartrate (Butorphanol 2 Mg/1 Ml Inj) 2 mg IV Q2H PRN PRN Reason: Pain , Severe (7-10) Carboprost Tromethamine (Carboprost Tromethamine 250 Mcg/1 Ml Inj) 250 mcg IM ONCE PRN PRN Reason: Uterine Bleeding Diphenhydramine HCl (Diphenhydramine 50 Mg/Ml Vial) 12.5 mg IV Q2H PRN PRN Reason: Itching Ephedrine Sulfate (Ephedrine Sulfate 50 Mg/1 Ml Inj) 10 mg IV Q2M PRN PRN Reason: Hypotension Fentanyl (Fentanyl 100 Mcg/2 Ml Inj) 100 mcg IV Q2H PRN PRN Reason: Pain,Severe (7-10) LABOR PAIN Lactated Ringer's (Lactated Ringers) 1,000 mls @ 125 mls/hr IV DIRECT JANETT Last Admin: 07/08/21 16:03 Dose: 999 mls/hr Documented by: Oxytocin/Sodium Chloride (Pitocin/Ns 30 Unit/500ml) 30 units in 500 mls @ 2 mls/hr IV TITR JANETT; Protocol Fentanyl/Bupivacaine/Sodium Chlor (Fentanyl-Bupiv 2 Mcg/Ml-0.125%) 200 mcg in 100 mls @ 12 mls/hr EPIDURAL TITR JANETT; Protocol Lidocaine (Lidocaine (2%) 20 Mg/1 Ml Vial 20 Ml Mdv) 20 ml INFILTRATI ONCE@1500 JANETT Stop: 07/09/21 14:59 Loperamide HCl (Loperamide 2 Mg Cap) 2 mg PO ONCE PRN PRN Reason: give with Hemabate Methylergonovine Maleate (Methylergonovine Maleate 0.2 Mg/Ml Vial) 0.2 mg IM ONCE PRN PRN Reason: Uterine Bleeding Mineral Oil (Mineral Oil 30 Ml Oral Liqd) 30 ml PO QHS PRN PRN Reason: Constipation Misoprostol (Misoprostol 200 Mcg Tab) 800 mcg [place] ONCE PRN PRN Reason: Uterine Bleeding Nalbuphine HCl (Nalbuphine 10 Mg/1 Ml Inj) 10 mg IV Q2H PRN PRN Reason: Pain, Moderate (4-6) Nalbuphine HCl (Nalbuphine 10 Mg/1 Ml Inj) 2.5 mg IV Q2H PRN PRN Reason: Itching Naloxone HCl (Naloxone 2 Mg/2 Ml Inj) 0.2 mg IV Q5M PRN PRN Reason: Respiratory sedation Ondansetron HCl (Ondansetron 4 Mg/2 Ml Inj) 4 mg IV Q8H PRN PRN Reason: Nausea And Vomiting Oxytocin (Oxytocin 10 Unit/1 Ml Inj) 10 unit IM ONCE PRN PRN Reason: Uterine Bleeding Terbutaline Sulfate (Terbutaline 1 Mg/1 Ml Inj) 0.25 mg SUB-Q ONCE PRN PRN Reason: Hyperstimulation/Hypertonicity Review of Systems All systems: negative - Vital Signs Vital signs: Vital Signs Pulse BP 83 105/57 07/08/21 14:13 07/08/21 14:13 Temp Pulse Resp BP Pulse Ox 98.9 F 76 103/57 99 07/08/21 14:16 07/08/21 17:15 07/08/21 17:15 07/08/21 17:15 - Physical Exam Breasts: Positive: deferred Abdomen: Positive: soft (gravid ) Genitourinary (Female): Positive: normal external genitalia Uterus: Positive: enlarged (gravid ) Extremities: Positive: normal - Obstetrical FHR: auscultation normal Uterine Contraction Monitor Mode: External Cervical Dilatation: 10 Cervical Effacement Percentage: 100 station: 0 Uterine Contraction Pattern: Regular Uterine Tone Measurement Phase: Resting Uterine Contraction Intensity: Strong/Firm Results Result Diagrams: 07/08/21 14:20 All other labs normal. Assessment and Plan A: IUP at 38w3d Transitional Labor GBS Negative P: Admit to labor and delivery Routine intrapartum care Closely monitor maternal and status
--- NOTE | 2021-07-08 17:28 | Procedure Note ---
OB Delivery Note - Delivery Date of Delivery: 07/08/21 Surgeon: JASE HERRING Estimated blood loss: 200cc - Vaginal Delivery presentation: vertex Delivery position: OA Intrapartum events: decreased FHT variability, extend. bradycardia Delivery induction: none Delivery augmentation: rupture of membranes Delivery monitor: external FHT, external uterine Route of delivery: vacuum extraction Indicators for instrumentation: nonreassuring FHR tracing Delivery placenta: spontaneous Delivery cord: nuchal cord (delivered through ) Episiotomy: none Delivery laceration: none Anesthesia: epidural Delivery comments: Pt progressed to complete/complete/+1 station with head visible at introitus. Poor maternal effort. Kiwi vacuum placed and head delivered with two pulls one pop off. Vacuum released. Nuchal cord somersaulted through, with delivery of shoulders and body. bulb suctioned, placed on maternal abdomen, and attended by NICU staff. Cord clamped and cut. to warmer with NICU staff. Placenta delivered spontaneously. No lacerations. EBL 100 mL. - A at 1 minute: 8 at 5 minutes: 9 Infant Gender: Female (2630g (5lb 13oz) @ 1710 pm)
[2021-07-08] MEDS ORDERED: LANOLIN/ZINC/DIMETHICONE (LANSINOH) 7 GM TP PRN ×2 (20:32)
[2021-07-08] MEDS ORDERED: HYDROcodone/ACETAMINOPHEN 5-325 MG TAB PO PRN (20:32)
[2021-07-08] MEDS ORDERED: diphenhydrAMINE 25 MG CAP PO PRN (20:32)
[2021-07-08] MEDS ORDERED: BENZOCAINE/MENTHOL 20/0.5% TOP SPRAY 56 GM TP PRN (20:32)
[2021-07-08] MEDS ORDERED: MAGNESIUM HYDROXIDE (MOM) ORAL LIQD UDC PO PRN (20:32)
[2021-07-08] MEDS ORDERED: PROMETHAZINE 25 MG RECT SUPP PR PRN (20:32)
[2021-07-08] MEDS ORDERED: PROMETHAZINE 25 MG TAB PO PRN (20:32)
[2021-07-08] MEDS ORDERED: WITCH HAZEL/ GLYCERIN PAD TP PRN (20:32)
[2021-07-08] MEDS: FERROUS SULFATE 325 MG TAB PO SCH (21:44)
[2021-07-08] MEDS: IBUPROFEN 600 MG TAB PO SCH (21:44)
[2021-07-09] MEDS: IBUPROFEN 600 MG TAB PO SCH ×2 (05:07→14:18)
[2021-07-09] MEDS ORDERED: TETANUS,DIPH,PERTUSS(ACELL) VACCINE 0.5 ML SYRINGE IM ONE (06:00)
--- NOTE | 2021-07-09 08:17 | Progress Note ---
Assessment and Plan - Patient Problems (1) Status post normal vaginal delivery Current Visit: Yes Status: Acute Plan to address problem: Continue routine PP orders Anticipate d/c home tomorrow if stable Subjective - Subjective Date of service: 07/09/21 Principal diagnosis: S/P ; PPD#1 Interval history: Pt is a 25 year old MATTHEW 07/19/21 at 38w3d who presents with painful contractions and advanced cervical dilation of 6 cm. She denies leakage of fluid or vaginal bleeding. She has had care at [facility] since 10 wks complicated by UTI (treated), h/o SGA fetus, subchorionic hemorrhage, limited anatomy scan. She is GBS negative. of viable female . Patient reports: appetite normal, voiding normally, pain well controlled, flatus, ambulating normally [place]: doing well, bottle feeding Objective - Vital Signs Latest vital signs: Vital Signs Temp Pulse Resp BP BP Pulse Ox Pulse Ox 07/09/21 06:07 18 07/09/21 05:20 97.4 F L 67 18 108/58 99 07/09/21 05:07 18 07/09/21 01:18 97.6 F 72 18 93/60 98 07/08/21 22:44 18 07/08/21 21:44 18 07/08/21 20:35 99 07/08/21 20:12 98.0 F 62 18 126/83 100 07/08/21 19:33 97.5 F L 75 117/78 07/08/21 19:30 73 100 07/08/21 19:25 70 100 07/08/21 19:20 59 L 99 07/08/21 19:16 78 130/78 07/08/21 19:15 79 100 07/08/21 19:10 61 100 07/08/21 19:05 53 L 100 07/08/21 19:01 72 126/65 07/08/21 19:00 65 100 07/08/21 18:55 61 100 07/08/21 18:50 73 100 07/08/21 18:45 64 113/75 100 07/08/21 18:40 63 100 07/08/21 18:35 60 100 07/08/21 18:31 72 114/75 07/08/21 18:30 68 100 10/12/21 18:25 61 100 07/08/21 18:20 61 100 07/08/21 18:15 59 L 107/68 100 07/08/21 18:10 73 100 07/08/21 18:05 66 100 07/08/21 18:01 73 107/56 07/08/21 18:00 67 100 07/08/21 17:55 74 100 07/08/21 17:50 73 100 07/08/21 17:45 85 100 07/08/21 17:40 88 100 07/08/21 17:35 80 100 07/08/21 17:31 83 130/60 07/08/21 17:30 84 100 07/08/21 17:25 77 100 07/08/21 17:23 87 90 07/08/21 17:20 82 100 07/08/21 17:15 76 103/57 99 07/08/21 17:14 76 118/66 07/08/21 17:10 73 100 07/08/21 17:06 67 112/65 07/08/21 17:05 67 100 07/08/21 17:04 73 139/69 07/08/21 17:02 88 129/59 07/08/21 17:00 83 100 07/08/21 16:58 77 121/57 07/08/21 16:56 105 H 120/57 07/08/21 16:55 112 H 100 07/08/21 16:52 80 102/57 07/08/21 16:50 63 100 07/08/21 16:48 74 92/51 07/08/21 16:46 77 95/59 07/08/21 16:45 86 99 07/08/21 16:44 74 109/72 07/08/21 16:42 75 104/68 07/08/21 16:40 68 105/68 99 07/08/21 16:38 92 H 105/68 07/08/21 16:36 78 109/68 07/08/21 16:35 71 100 07/08/21 16:34 71 98/55 07/08/21 16:32 76 102/57 07/08/21 16:31 73 96/55 07/08/21 16:30 68 100 07/08/21 16:25 84 100 07/08/21 16:20 84 99 07/08/21 16:15 80 100 07/08/21 16:10 81 100 07/08/21 16:05 75 109/65 99 07/08/21 14:16 98.9 F 83 105/57 07/08/21 14:13 83 105/57 Intake and Output 07/08/21 07/09/21 07/09/21 23:59 07:59 15:59 Intake Total 385.817 360 Output Total 400 700 Balance -14.183 -340 Intake: IV 145.817 Lactated Ringers 1,000 ml 145.817 @ 125 mls/hr IV DIRECT JANETT Rx#:[id number] Oral 240 Intake, Free Water 360 Output: Urine 400 700 Indwelling 200 Void 200 700 Other: Total, Intake Amount 240 Total, Output Amount 200 400 Estimated Blood Loss 25 - Exam Breasts: Present: normal Cardiovascular: Present: Regular rate Lungs: Present: Normal air movement Abdomen: Present: soft (reports some cramping) Uterus: Present: firm, fundal height below umbilicus (U-3) Extremities: Present: normal Deep Tendon Reflex Grade: Normal +2
[2021-07-09 11:11] LABS: Hematocrit 29.8 % (30.3-42.9); Hemoglobin 10.2 gm/dl (10.1-14.3)
--- NOTE | 2021-07-09 12:29 | Post Anesthesia Evaluation ---
- Post Anesthesia Evaluation Patient Participated: Yes Airway Patent: Yes Stable Respiratory Function: Yes Nausea/Vomiting: No Temp > 96.8F: Yes Pain Manageable: Yes Adequeate Hydration: Yes Anesthesia Complications: No Block Receding Appropriately: Yes Patient on Ventilator: No
[2021-07-09] MEDS: FERROUS SULFATE 325 MG TAB PO SCH (14:17)
[2021-07-09] MEDS ORDERED: MEASLES, MUMPS & RUBELLA 12,500 UNIT/0.5 ML VACCINE SUB-Q ONE (19:02)
[2021-07-10] MEDS: FERROUS SULFATE 325 MG TAB PO SCH (00:12)
[2021-07-10] MEDS: IBUPROFEN 600 MG TAB PO SCH ×2 (00:12→06:00)
--- NOTE | 2021-07-10 09:02 | Discharge Summary ---
Providers - Providers Date of Admission: 07/08/21 13:45 Date of discharge: 07/10/21 Attending physician: JASE HERRING 07/08/21 20:32 Consult to Wide Area Network Engineer [CONS] Routine Reason For Exam: assistance with , SNS Primary care physician: JASE HERRING Hospitalization Reason for admission: active labor Delivery: Episiotomy: none Laceration: none Other procedures: none complications: none Discharge diagnosis: IUP at term delivered [place] baby: female Hospital course: Pt is a 25 year old MATTHEW 07/19/21 at 38w3d who presents with painful contractions and advanced cervical dilation of 6 cm. She denies leakage of fluid or vaginal bleeding. She has had care at [facility] since 10 wks complicated by UTI (treated), h/o SGA fetus, subchorionic hemorrhage, limited anatomy scan. She is GBS negative. of viable female . Condition at discharge: Good Disposition: 01 HOME / SELF CARE / HOMELESS - Discharge Diagnoses (1) Status post normal vaginal delivery Status: Acute (2) Anemia Status: Acute Qualifiers: Anemia type: other cause Other causes of anemia: acute posthemorrhagic Qualified Code(s): D62 - Acute posthemorrhagic anemia Comment: Asymptomatic Increase iron rich foods into diet Plan - Discharge Medications Prescriptions: Ibuprofen [Motrin 600 MG tab] 600 mg PO Q8H 7 Days #21 tablet - Provider Discharge Summary Activity: routine, no sex for 6 weeks, no heavy lifting 4 weeks, no strenuous exercise Diet: other (Iron rich foods) Instructions: routine Additional instructions: [] Smoking cessation referral if applicable(refer to patient education folder for contact #) [] Refer to [facility]'s [facility] Booklet Call your doctor immediately for: * Fever > 100.5 * Heavy vaginal bleeding ( >1 pad per hour) * Severe persistent headache * Shortness of breath * Reddened, hot, painful area to leg or breast * Drainage or odor from incision. * Keep incision clean and dry at all times and follow doctor's instructions regarding bathing/showering - Follow up plan Follow up: JASE HERRING MD [Primary Care Provider] - 6 Weeks Forms: [facility] Discharge Summary
[2021-07-10 13:23] VITALS: BP 97/61
== END 2021-07-10 12:30 | disposition home or self-care (01) | DRG 775 ==
LOC: LD 13:44 → TRG 13:44 → APU 13:45 → LD 13:45 → TRG 15:34 → OB 20:28
PROVIDERS: ADMIT Obstetrics & Gynecology; ATTEND Obstetrics & Gynecology
PROC: 3E0R3BZ Introduction of Anesthetic Agent into Spinal Canal, Percutaneous Approach (ICD-10-PCS; principal; 2021-07-08)
PROC: 10D07Z6 Extraction of Products of Conception, Vacuum, Via Natural or Artificial Opening (ICD-10-PCS; 2021-07-08)
PROC: 00HU33Z Insertion of Infusion Device into Spinal Canal, Percutaneous Approach (ICD-10-PCS; 2021-07-08)
PROC: 3E0234Z Introduction of Serum, Toxoid and Vaccine into Muscle, Percutaneous Approach (ICD-10-PCS; 2021-07-09)
DX: O76 Abnormality in fetal heart rate and rhythm complicating labor and delivery (principal); Z3A.38 38 weeks gestation of pregnancy; Z37.0 Single live birth; Z23 Encounter for immunization; O69.81X0 Labor and delivery complicated by cord around neck, without compression, not applicable or unspecified; O90.81 Anemia of the puerperium; D62 Acute posthemorrhagic anemia
CPT/HCPCS: 36415; 82962; 85014; 85018; 85027; 86592; 86850; 86900; 86901; 99211; G0378; G0463; J7120; U0003